=== PATIENT | female | born 1965 | race Caucasian/White ===

== ENCOUNTER 2021-05-30 17:53 | Emergency (ER) | payer OTHER ==
[2021-05-30 18:17] VITALS: BMI 25.7
[2021-05-30] MEDS ORDERED: SOTROVIMAB 500 MG in SODIUM CHLORIDE 100 ML IVPB ONE (18:26)
[2021-05-30 20:23] VITALS: BP 110/78; PULSE 78; TEMP 98.3
== END 2021-05-30 20:22 | disposition home or self-care (01) ==
LOC: JCOVINFU 17:53 → JER 17:53 → JCOVINFU 20:22
DX: Z11.52 Encounter for screening for COVID-19 (principal)
CPT/HCPCS: 99283-25; Q0247